=== PATIENT | female | born 1955 | race Caucasian/White ===

== ENCOUNTER → 2024-11-17 16:12 | Outpatient (REF) | payer MEDICARE, OTHER, SELFPAY | LOC: HWWDC 16:12 | PROVIDERS: ATTENDING PHYSICIAN Nurse Practitioner Family | DX: Z12.31 Encounter for screening mammogram for malignant neoplasm of breast (principal) | CPT/HCPCS: 77063; 77067 ==

== ENCOUNTER → 2025-07-09 09:36 | Outpatient (REF) | payer MEDICARE, OTHER, SELFPAY | LOC: WDC 09:36 | PROVIDERS: ATTENDING PHYSICIAN Nurse Practitioner Family | DX: N63.31 Unspecified lump in axillary tail of the right breast (principal) | CPT/HCPCS: 76642; 77061; 77065 ==

== ENCOUNTER → 2025-07-22 16:37 | Outpatient (REF) | payer MEDICARE, OTHER, SELFPAY | LOC: RAD 16:37 | PROVIDERS: ATTENDING PHYSICIAN Family Medicine | DX: N63.31 Unspecified lump in axillary tail of the right breast (principal); R92.8 Other abnormal and inconclusive findings on diagnostic imaging of breast; R59.9 Enlarged lymph nodes, unspecified | CPT/HCPCS: 71270; Q9967 ==

== ENCOUNTER → 2025-07-28 09:23 | Outpatient (REF) | payer MEDICARE, OTHER, SELFPAY ==
[2025-07-28 09:31] LABS: Glucose 102 mg/dl (70-99)
== END ==
LOC: PET 09:23
PROVIDERS: ATTENDING PHYSICIAN Family Medicine
DX: R91.8 Other nonspecific abnormal finding of lung field (principal); R73.09 Other abnormal glucose
CPT/HCPCS: 36415; 82947

== ENCOUNTER → 2025-08-16 11:42 | Outpatient (REF) | payer MEDICARE, OTHER, SELFPAY | LOC: HWRAD 11:42 | PROVIDERS: ATTENDING PHYSICIAN Internal Medicine Hematology & Oncology; FAMILY PHYSICIAN Family Medicine | DX: C44.399 Other specified malignant neoplasm of skin of other parts of face (principal) | CPT/HCPCS: 76536 ==

== ENCOUNTER → 2025-09-03 10:30 | Outpatient (REF) | payer MEDICARE, OTHER, SELFPAY ==
[2025-09-03 11:00] VITALS: BP 137/95; BP_SYST 71
[2025-09-03] MEDS: ANCEF 10 IV (11:51)
[2025-09-03 12:45] VITALS: BP 127/82; BP_SYST 64
[2025-09-03 12:50] VITALS: BP 106/75; BP_SYST 68
[2025-09-03 12:55] VITALS: BP 96/53; BP_SYST 67
[2025-09-03 13:00] VITALS: BP 133/64; BP_SYST 64
[2025-09-03 13:08] VITALS: BP 133/64
== END ==
LOC: RADI 10:30
PROVIDERS: ATTENDING PHYSICIAN Internal Medicine Hematology & Oncology; FAMILY PHYSICIAN Family Medicine; OTHER PHYSICIAN Student in an Organized Health Care Education/Training Program
DX: C44.399 Other specified malignant neoplasm of skin of other parts of face (principal)
CPT/HCPCS: 36561; 76937; 77001; 99152; C1788